=== PATIENT | male | born 2000 | race Two or more races ===

== ENCOUNTER 2024-06-18 22:48 | Emergency (ER) | payer SELFPAY ==
[2024-06-18 23:03] VITALS: BP 138/84; PULSE 66; RESP 16; TEMP 36.3; O2SAT 100; BMI 38.6
[2024-06-19] MEDS: Fluorescein Sodium STRIP 1 STRIP EYE-BOTH (02:31)
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
[2024-06-19] MEDS: Tobramycin Sulfate 0.3% Sol Op 5 ML BTL 2 DROP EYE-LEFT (03:12)
[2024-06-19 03:31] VITALS: BP 130/73; PULSE 64; RESP 16; TEMP 36.3; O2SAT 99
[2024-06-19 03:35] VITALS: BP 130/73; PULSE 64; RESP 16; TEMP 36.3; O2SAT 99
== END 2024-06-19 03:35 | disposition home or self-care (01) ==
PROVIDERS: Emergency Provider Internal Medicine
DX: S05.01XA Injury of conjunctiva and corneal abrasion without foreign body, right eye, initial encounter (principal); X58.XXXA Exposure to other specified factors, initial encounter; Y93.9 Activity, unspecified; Y92.9 Unspecified place or not applicable; Y99.9 Unspecified external cause status
CPT/HCPCS: 99284